=== PATIENT | male | born 1995 | race Caucasian/White ===

== ENCOUNTER 2017-01-17 19:01 | Inpatient (IN) | payer BC, OTHER ==
[~2017-01-17] VITALS: Ht 188 cm; Wt 76.0 kg
[2017-01-17 19:26] LABS: HEMATOCRIT 47.4 % (38.0-50.0); MCH 27.9 PG (29.0-34.0); MCHC 33.8 G/DL (30.0-36.0); MCV 82.7 FL (86-99); PLATELET COUNT 177 K/uL (156-360); RBC DIS.WIDTH-CV 11.6 % (11.8-14.6); RBC DIS.WIDTH-SD 34.8 % (39-53); RED BLOOD COUNT 5.73 M/uL (4.00-5.50); WHITE BLOOD COUNT 6.2 K/uL (4.1-10.2)
[2017-01-17 19:35] LABS: CHLORIDE 104 mEq/L (99-109); POTASSIUM 3.6 mEq/L (3.7-5.4); SODIUM 141 mEq/L (136-147)
[2017-01-17 19:37] LABS: GLUCOSE 98 mg/dL (70-99)
[2017-01-17 19:38] LABS: ANION GAP 9 MEQ/L (2-14)
[2017-01-17 19:39] LABS: TOTAL BILIRUBIN 0.6 mg/dL (0.0-1.0)
[2017-01-17 19:40] LABS: ALKALINE PHOSPHATASE 98 IU/L (3-129)
[2017-01-17 19:42] LABS: GFR ESTIMATE (CALCULATED) > 59 mL/min/; UREA NITROGEN (BUN) 16 mg/dL (9-23)
[2017-01-17 21:13] LABS: ADD MIUA? NO; BILIRUBIN NEGATIVE; BLOOD NEGATIVE; COLOR YELLOW ((YELLOW)); GLUCOSE (STRIP) NEGATIVE; KETONES NEGATIVE; LEUKOCYTES NEGATIVE; NITRITE NEGATIVE; PROTEIN (STRIP) NEGATIVE; SPECIFIC GRAVITY 1.016 (1.000-1.030); UCUL ADDED? NO; UROBILINOGEN 0.2 MG/DL (0.2-1.0)
[2017-01-18] VITALS (7 sets, daily range): BP systolic 120–149; BP diastolic 66–82
[2017-01-18] MEDS ORDERED: TYLENOL EXTRA500 MG PO (01:52)
[2017-01-19 05:40] VITALS: BP 134/76
[2017-01-19 07:29] VITALS: BP 151/78
[2017-01-19 12:03] VITALS: BP 128/68
[2017-01-19 12:13] VITALS: BP 139/85
[2017-01-19 19:30] VITALS: BP 138/79
[2017-01-19 23:00] VITALS: BP 112/57
[2017-01-20 04:30] VITALS: BP 113/56
[2017-01-20 08:45] VITALS: BP 117/62
[2017-01-20 12:27] VITALS: BP 110/74
[2017-01-20 14:44] VITALS: BP 137/73
[2017-01-20 20:00] VITALS: BP 132/70
[2017-01-20 23:00] VITALS: BP 142/78
[2017-01-21 04:00] VITALS: BP 124/63
[2017-01-21 07:23] VITALS: BP 119/59
[2017-01-21 12:15] VITALS: BP 136/75
[2017-01-21 16:08] VITALS: BP 133/75
[2017-01-21 20:07] VITALS: BP 134/68
[2017-01-21 23:16] VITALS: BP 115/72
[2017-01-22 04:41] VITALS: BP 118/62
[2017-01-22 05:39] LABS: HEMATOCRIT 35.6 % (38.0-50.0); MCH 29.3 PG (29.0-34.0); MCV 86.2 FL (86-99); MEAN PLAT.VOLUME 9.9 uM^3 (9.0-12.4); PLATELET COUNT 141 K/uL (156-360); RBC DIS.WIDTH-CV 11.7 % (11.8-14.6); RBC DIS.WIDTH-SD 36.6 % (39-53); RED BLOOD COUNT 4.13 M/uL (4.00-5.50); WHITE BLOOD COUNT 7.3 K/uL (4.1-10.2)
[2017-01-22 07:35] VITALS: BP 121/76
[2017-01-22 11:58] VITALS: BP 128/70
[2017-01-22 15:36] VITALS: BP 130/83
[2017-01-22 19:10] VITALS: BP 129/82
[2017-01-23] VITALS (7 sets, daily range): BP systolic 123–139; BP diastolic 66–83
[2017-01-23 05:48] LABS: HEMATOCRIT 36.7 % (38.0-50.0); MCH 28.9 PG (29.0-34.0); MCHC 34.1 G/DL (30.0-36.0); MCV 84.8 FL (86-99); MEAN PLAT.VOLUME 10.2 uM^3 (9.0-12.4); PLATELET COUNT 162 K/uL (156-360); RBC DIS.WIDTH-CV 11.4 % (11.8-14.6); RED BLOOD COUNT 4.33 M/uL (4.00-5.50); WHITE BLOOD COUNT 7.2 K/uL (4.1-10.2)
[2017-01-24 03:02] VITALS: BP 126/82
[2017-01-24 07:00] VITALS: BP 136/68
[2017-01-24 11:33] VITALS: BP 138/69
[2017-01-24 15:45] VITALS: BP 133/68
[2017-01-24 19:25] VITALS: BP 141/72
[2017-01-25] VITALS (7 sets, daily range): BP systolic 112–136; BP diastolic 56–82
[2017-01-26 00:10] VITALS: BP 122/72
[2017-01-26 04:15] VITALS: BP 106/72
[2017-01-26 08:30] VITALS: BP 142/82
[2017-01-26 12:30] VITALS: BP 116/67
[2017-01-26 16:30] VITALS: BP 108/65
[2017-01-26 19:54] VITALS: BP 110/62
[2017-01-27 03:29] VITALS: BP 135/80
[2017-01-27 07:39] VITALS: BP 117/67
[2017-01-27 15:42] VITALS: BP 116/64
[2017-01-27 21:00] VITALS: BP 112/70
[2017-01-28 00:42] VITALS: BP 137/70
[2017-01-28 07:56] VITALS: BP 110/62
[2017-01-28 12:12] VITALS: BP 118/66
[2017-01-28 19:23] VITALS: BP 120/70
[2017-01-28 23:36] VITALS: BP 124/65
[2017-01-29 08:05] VITALS: BP 117/58
[2017-01-29 16:34] VITALS: BP 113/66
[2017-01-29 23:42] VITALS: BP 121/75
[2017-01-30 08:00] VITALS: BP 112/56
[2017-01-30 15:56] VITALS: BP 128/64
[2017-01-30 23:34] VITALS: BP 123/73
[2017-01-31 08:07] VITALS: BP 109/59
[2017-01-31] MEDS ORDERED: NORCO 5/3251 TABLET PO (11:15)
[2017-01-31] MEDS ORDERED: DOCUSATE SODIU100 MG PO (11:15)
[2017-01-31] MEDS ORDERED: IBUPROFEN400 MG PO (11:15)
== END 2017-01-31 14:49 | disposition home or self-care (01) | DRG 165 ==
LOC: EME 19:01 → EDOF 23:20 → 4EAST 23:20 → ENRESERV 23:37 → 4EAST 01-18 01:20 → ENRESERV 01-27 01:13 → 3EAST 01-27 03:12
PROVIDERS: Surgery
PROC: 0B5P4ZZ Destruction of Left Pleura, Percutaneous Endoscopic Approach (ICD-10-PCS; principal; 2017-01-19)
DX: J93.83 Other pneumothorax (principal); J93.82 Other air leak; J43.8 Other emphysema; K59.00 Constipation, unspecified; R63.6 Underweight
CPT/HCPCS: 71010; 71020; 71260; 74022; 76870; 80053; 81003; 85027; 90686; 94640; 94640 76; 94760; 99202; 99281; 99285; J0131; J0690; J1100; J1170; J1644; J1885; J2175; J2250; J2270; J2405; J2550; J2710; J3010; J7120

== ENCOUNTER 2017-07-25 11:46 | Emergency (ER) | payer OTHER, BC ==
[~2017-07-25] VITALS: Ht 188 cm; Wt 58.3 kg
[~2017-07-25 11:46] MED LIST: DOCUSATE SODIU100 MG PO; IBUPROFEN400 MG PO; NORCO 5/3251 TABLET PO; TYLENOL EXTRA500 MG PO
[2017-07-25 14:26] VITALS: BP 142/82
== END 2017-07-25 14:26 | disposition home or self-care (01) ==
LOC: EME 11:46
PROC: 2W3CX1Z Immobilization of Right Lower Arm using Splint (ICD-10-PCS; principal; 2017-07-25)
DX: S67.41XA Crushing injury of right wrist and hand, initial encounter (principal); S67.10XA Crushing injury of unspecified finger(s), initial encounter; W23.0XXA Caught, crushed, jammed, or pinched between moving objects, initial encounter; W31.9XXA Contact with unspecified machinery, initial encounter
CPT/HCPCS: 73130; 99281; 99284; J2405; J3010